=== PATIENT | female | born 1950 | race African-American/Black ===

== ENCOUNTER 2017-05-02 19:34 | Emergency (ER) | payer SELFPAY ==
[~2017-05-02] VITALS: Ht 167.6 cm; Wt 100.0 kg
[2017-05-02 19:48] VITALS: BP 178/83
== END 2017-05-02 21:50 | disposition left against medical advice (07) ==
LOC: ER 19:34
DX: R07.9 Chest pain, unspecified (principal); Z53.21 Procedure and treatment not carried out due to patient leaving prior to being seen by health care provider